=== PATIENT | male | born 1945 | race Caucasian/White ===

== ENCOUNTER → 2016-10-29 | Day surgery (SDC) | payer OTHER ==
[~2016-10-29] MED LIST: ASPI-482 PO; DOXA2TAB2 PO; GLIM4TAB2 PO; LIDOCAINE 1%/EPI 1:100,000 20 ML VIAL. INJ ONE; LIDOCAINE 1%/EPI 1:100,000 20 ML VIAL. ONE; METF-620 PO; MULT-18 PO; OMEG-33 PO; RAMI5CAP PO; SIMV40TA3 PO; SITA100T PO; UBID100C26 PO
[2016-10-29 12:00] VITALS: BP 135/74
--- NOTE | 2016-10-29 12:31 | PDOC ---
BRIEF OPERATIVE NOTE Date: Oct 29, 2016 Pre-Op Diagnosis LOWER BACK MASS Post-Op Diagnosis Same Procedure Performed Excision of lower back mass Surgeon Bill Anesthesia Type: Local Blood Loss 5ml Specimens Obtained back mass DELVIS LEVI MD Oct 29, 2016 12:31
--- NOTE | 2016-10-29 15:56 | OP ---
DATE OF SURGERY: 10/29/2016 PREOPERATIVE DIAGNOSIS: Sebaceous cyst, lower back. POSTOPERATIVE DIAGNOSIS: Sebaceous cyst, lower back. PROCEDURE: Excision of cyst. SURGEON: Dominic Levi MD. INDICATIONS: The patient is a 70-year-old gentleman who has had a couple of infection of his lower back, an area where there is a sebaceous cyst that has been previously incised and drained couple times. Procedure of excision was explained to the patient in detail. Risks, benefits were also discussed including bleeding, infection. Alternatives of this procedure were also discussed with the patient who seemed to understand and gave verbal and written consent to have the procedure performed. DESCRIPTION OF PROCEDURE: The patient was taken to the minor's room and placed in the prone position. His back was prepped and draped in usual sterile fashion using ChloraPrep. An area around the cyst was injected with 1% lidocaine with epinephrine. Elliptical incision was made with 15 blade scalpel, was carried down through subcutaneous tissues, excising whole cyst. The wound was then closed in 2 layers, deep layer with running 3-0 Vicryl and the skin was reapproximated with 4-0 subcuticular Monocryl. Mastisol, Steri-Strips and Band-Aids were applied as dressing. The patient was awakened. The patient tolerated the procedure well without any difficulty and was discharged to home in stable condition. DOMINIC LEVI MD DR: SHALONDA/kentrell JOB#: [id number] / [id number] EVELYNE Dey MD
--- NOTE | 2016-10-30 15:22 | PATHOLOGY ---
PATHOLOGY REPORT * * * * * * * * FINAL DIAGNOSIS: Skin and subcutaneous tissue, lower back: - Ruptured epidermal inclusion cyst showing acute and chronic inflammation and focal foreign body giant cell reaction. COMMENT: There is no evidence of malignancy. (JPM:mgspencer; d/t: 10/30/16) REPORT ELECTRONICALLY SIGNED BY: Bandar Stephenson M.D. DATE/TIME: 10/30/2016 15:21 * * * * * * * * GROSS PATHOLOGY: The specimen is received in formalin, designated "Cecil Zhou, lower back sebaceous cyst" and consists of an ellipse of pale yellow ley skin and subcutaneous tissue. The skin surface is smooth with no obvious lesions and is focally distorted by instrument teeth clamp gatica. The subcutaneous tissue is pink ley, rubbery and shows a previously opened cystic structure present at the deep margin, which shows snider white friable material. The margins are inked with black ink, the specimen is serially sectioned and submitted entirely in cassette A1. (JPM; 10/29/16) INITIAL CPT CODE(S): A; 25716 Professional services performed by [facility] [place] [address] Technical services performed by [facility] at [address] [place] [address] [address], [place] [address]. SPECIMEN(S) RECEIVED: A.Lower back sebaceous cyst CLINICAL HISTORY: None Provided PATIENT: CECIL ZHOU /AGE: 711/16/1945 (Age: 70) PATIENT #: [id number] ALT CASE #: SPECIMEN COLLECTION DATE: 10/29/2016 SPECIMEN RECEIVED DATE: 10/29/2016 [facility] - [address] [place] [address] - PHONE: [phone] * * * END OF REPORT * * *
== END | disposition home or self-care (01) ==
LOC: SURG 11:28
PROVIDERS: ATTEND Surgery
DX: L72.3 Sebaceous cyst (principal); E78.00 Pure hypercholesterolemia, unspecified; I10 Essential (primary) hypertension; J45.909 Unspecified asthma, uncomplicated; E11.9 Type 2 diabetes mellitus without complications; Z98.41 Cataract extraction status, right eye; Z98.42 Cataract extraction status, left eye; Z86.39 Personal history of other endocrine, nutritional and metabolic disease
CPT/HCPCS: 11402; 12031; 88304; J3490